=== PATIENT | male | born 1950 | race Caucasian/White ===

== ENCOUNTER 2024-05-26 06:17 | Day surgery (SDC) | payer MEDICARE ==
[~2024-05-26] VITALS: Ht 177.8 cm; Wt 73.9 kg
[2024-05-26] VITALS (9 sets, daily range): BP systolic 113–140; BP diastolic 66–79
[~2024-05-26 06:17] MED LIST: AMLO5 PO; MELO7.5 PO; MULVITA PO; Prinivil10 MG PO
[2024-05-26] MEDS ORDERED: Lactated Ringer's 1,000 ML IV SCH (06:30)
[2024-05-26] MEDS ORDERED: CeFAZolin Sodium 2,000 MG in NS 100 ML IV SCH (06:30)
[2024-05-26] MEDS ORDERED: CeFAZolin Sodium 2,000 MG VIAL ONE (06:42)
[2024-05-26] MEDS ORDERED: Bupivacaine 0.5% HCl 5 MG/ML 30MLVIAL ONE (07:03)
--- NOTE | 2024-05-26 07:07 | NUR ---
Ambulatory in Day Surgery WITH STEADY GAIT. History, Chart, Medications and Allergies reviewed before start of procedure. Patient States Post-Procedure ride home has been arranged WITH COUSIN IRIS. GLASSES REMOVED AND TAKEN TO PACU, OTHER BELONGINGS PLACED UNDER GURN.
[2024-05-26] MEDS ORDERED: Etomidate 2MG / ML 10ML Vial ONE (07:22)
[2024-05-26] MEDS ORDERED: FentaNYL Citrate 50 MCG/ML 2 ML Injection ONE (07:24)
[2024-05-26] MEDS ORDERED: SuccINYLCHOLINE Chloride 100 MG/5 ML 5MLSYR ONE ×2 (07:35→07:42)
[2024-05-26] MEDS ORDERED: Ondansetron HCl 2 MG / ML 2ML Vial ONE (07:42)
[2024-05-26] MEDS ORDERED: Rocuronium Bromide 10 MG/ML 5ML Injection IV ONE (07:42)
[2024-05-26] MEDS ORDERED: Lidocaine HCl 2% 20 ML MDV ONE (07:42)
[2024-05-26] MEDS ORDERED: Dexamethasone Sod Phos 10 MG/ML 1ML VIAL ONE (07:42)
[2024-05-26] MEDS ORDERED: Ketorolac Tromethamine 30mg Vial ONE (08:47)
[2024-05-26] MEDS ORDERED: Sugammadex Sodium 200 MG/2ML SDV (100 MG/ML) ONE (08:48)
[2024-05-26] MEDS ORDERED: HYDROmorphone HCl/Pf 1MG SYR ONE (08:54)
[2024-05-26] MEDS ORDERED: HYDROcodone 5-APAP 325 TAB PO PRN (09:10)
--- NOTE | 2024-05-26 10:17 | NUR ---
Discharge instructions reviewed with patient. Patient verbalizes understanding. Copy given to patient to take home. BELONGINGS INCLUDING GLASSES RETURNED TO PT. PT REQUESTING MORE TIME IN RECOVERY DUE TO "FEELING GROGGY". PT REMAINS ON MONITORS. CALL LIGHT IN REACH. WILL CONTINUE TO MONITOR PT.
--- NOTE | 2024-05-26 10:49 | NUR ---
PT RESTING IN GURN. VITALS REMAIN STABLE. SEE FLOWSHEET. COUSIN AT BEDSIDE VISITING WITH PT. NO PAIN OR NAUSEA REPORTED. PT REFUSING PAIN PILL DUE TO NO PAIN. WILL CONTINUE TO MONITOR PT.
--- NOTE | 2024-05-26 11:01 | NUR ---
1100 PT VERBALIZES READINESS TO GO HOME. Patient up to Ambulate independently. Gait steady. VSS AND CONSISTENT WITH PT BASELINE. Discharge instructions reviewed with patient. Patient verbalizes understanding. Copy given to patient to take home. Dressing to procedure site clean, dry, intact with no visible drainage, swelling, erythema or bruising noted. Patient States Post-Procedure ride home has been arranged. Discharged via wheelchair to private car for ride home. PT BELONGINGS RETURNED TO PT.
== END 2024-05-26 11:10 | disposition home or self-care (01) ==
LOC: ORSCMMR 06:17 → ORD 07:30 → ORSCMMR 07:30
PROVIDERS: Surgery
PROC: 0YU54JZ Supplement Right Inguinal Region with Synthetic Substitute, Percutaneous Endoscopic Approach (ICD-10-PCS; principal; 2024-05-26 07:30)
PROC: 8E0W4CZ Robotic Assisted Procedure of Trunk Region, Percutaneous Endoscopic Approach (ICD-10-PCS; principal; 2024-05-26 07:30)
DX: K40.90 Unilateral inguinal hernia, without obstruction or gangrene, not specified as recurrent (principal); I10 Essential (primary) hypertension; Z79.899 Other long term (current) drug therapy
CPT/HCPCS: C1781; J0330; J0690; J1100; J1171; J1885; J2405; J3010; J7120

== ENCOUNTER → 2025-05-02 | Outpatient (CLI) | payer MEDICARE, OTHER | LOC: LAB SHORT 07:58 → LAB 07:58 | DX: C61 Malignant neoplasm of prostate (principal) | CPT/HCPCS: 88305; 88341; 88342 ==